=== PATIENT | female | born 1955 | race Caucasian/White ===

== ENCOUNTER 2020-02-17 07:35 | Outpatient (CLI) | payer MEDICARE | END 2020-02-17 23:59 | disposition home or self-care (01) | LOC: ROC 07:35 | PROVIDERS: ATTEND Radiology Radiation Oncology | DX: C02.8 Malignant neoplasm of overlapping sites of tongue (principal) | CPT/HCPCS: G0463 ==

== ENCOUNTER → 2020-05-04 | Outpatient (CLI) | payer MEDICARE ==
[~2020-05-04] MED LIST: LORA-446 PO
== END | disposition home or self-care (01) ==
LOC: ROC 07:34
PROVIDERS: ATTEND Radiology Radiation Oncology
DX: Z08 Encounter for follow-up examination after completed treatment for malignant neoplasm (principal); Z85.810 Personal history of malignant neoplasm of tongue
CPT/HCPCS: G0463

== ENCOUNTER 2020-05-27 08:29 | Outpatient (CLI) | payer MEDICARE | END 2020-05-27 23:59 | disposition home or self-care (01) | LOC: ROC 08:29 | PROVIDERS: ATTEND Radiology Radiation Oncology | DX: Z08 Encounter for follow-up examination after completed treatment for malignant neoplasm (principal); Z85.810 Personal history of malignant neoplasm of tongue | CPT/HCPCS: G0463 ==

== ENCOUNTER → 2020-07-29 | Outpatient (CLI) | payer MEDICARE | END | disposition home or self-care (01) | LOC: ROC 07:34 | PROVIDERS: ATTEND Radiology Radiation Oncology | DX: Z08 Encounter for follow-up examination after completed treatment for malignant neoplasm (principal); C02.8 Malignant neoplasm of overlapping sites of tongue | CPT/HCPCS: G0463 ==